=== PATIENT | female | born 1985 | race Caucasian/White ===

== ENCOUNTER 2016-10-04 22:34 | Emergency (ER) | payer MEDICAID ==
[~2016-10-04 22:34] MED LIST: ALKA-SELTZER P1 EACH PO; AMOXICILLIN875 MG PO; BUSPAR15 M1 DOB; DAYTIME NIGHTT PO; DOLOBID500 MG PO; FLEXERIL10 MG PO; FLONASE 0.05% N16 GM; IBUPROFEN800 MG PO; LODINE XL PO; NO MEDICATIONS; NYQUIL D COLD295 ML PO; PRENATAL1 TA1; PROPRANOLOL HCL10 M1 PO; SKELAXIN PO; ULTRAM PO; VICODIN 5/1 TAB 5/50 PO; VISTARIL PO; VOLTAREN75 MG PO
== END 2016-10-04 22:45 | disposition left against medical advice (07) ==
LOC: SED 22:34
DX: O60.03 Preterm labor without delivery, third trimester (principal); Z3A.36 36 weeks gestation of pregnancy
CPT/HCPCS: 99284